=== PATIENT | female | born 1980 | race African-American/Black ===

== ENCOUNTER 2017-08-11 06:49 | Emergency (ER) | payer OTHER, MEDICAID, SELFPAY | END 2017-08-11 08:22 | disposition home or self-care (01) | PROVIDERS: Emergency Provider Emergency Medicine; Visit Provider Emergency Medicine | DX: L02.811 Cutaneous abscess of head [any part, except face] (principal) | CPT/HCPCS: 99282 ==

== ENCOUNTER 2017-08-30 22:41 | Emergency (ER) | payer OTHER, MEDICAID, SELFPAY ==
[2017-08-30 22:46] VITALS: BP 105/65; PULSE 86; RESP 18; TEMP 36.9; O2SAT 98; BMI 21.1
--- NOTE | 2017-08-30 23:41 | ED.EXTPRO ---
HPI - Extremity Problem General Chief complaint: Extremity Problem,Nontraumatic Stated complaint: RT HAND SWELLING PAIN UNABLE TO MOVE WELL Time Seen by Provider: 08/30/17 22:57 Source: patient Mode of arrival: ambulatory Limitations: no limitations History of Present Illness HPI Narrative: 37-year-old female here for evaluation of right wrist pain. Patient states that she ???woke up with the pain this evening. She states she has a caregiver. Does not remember any specific trauma but has been lifting things recently. States she had similar symptoms on her left hand in the past. Has not tried anything for it. Related Data Home Medications Medication Instructions Recorded Confirmed cetirizine 10 mg PO QDAY #0 05/21/17 loratadine [Claritin Liqui-Gel] 10 mg PO QDAY #0 05/21/17 Previous Rx's Medication Instructions Recorded Spacer: Inhaler Spacer Device ea INH SEE INSTRUCTIONS PRN #1 05/15/17 albuterol sulfate [Ventolin HFA] 2 puff INH Q4HP PRN #1 ea 05/15/17 amoxicillin 875 mg PO BID #10 tab 05/15/17 benzonatate 100 mg PO TIDP PRN #30 cap 05/15/17 prednisone 40 mg PO AMCC #8 tab 05/15/17 ondansetron [Zofran ODT] 4 mg SUBLINGUAL Q4HP PRN #15 odt 05/19/17 sertraline [Zoloft] 50 mg PO QDAY #30 tab 05/21/17 mupirocin 0 quang TOPICAL TID #22 gm 08/11/17 Allergies Allergy/AdvReac Type Severity Reaction Status Date / Time levofloxacin [LEVOFLOXACIN] Allergy Intermediate nausea, Unverified 07/30/17 12:38 vomiting. No Known Drug Allergies Allergy Unknown Unverified 07/30/17 12:38 [NO KNOWN DRUG ALLERGIES] Review of Systems Constitutional Denies chills, Denies fever(s), Denies lethargy and Denies weakness Musculoskeletal Comments: Right wrist pain. Swelling to right hand Integumentary/Breasts Denies pruritus, Denies erythema, Denies rash and Denies wounds Neurologic Denies weakness Comments: Tingling to her right hand fingers PFSH Family History Brother Age: 46 Hypertension Father Heart disease Hypertension Grandfather Prostate cancer Heart disease Hypertension High cholesterol Grandmother Hypertension Mother Age: 67 Colon cancer Parkinson disease Grandmother Cancer Hypertension High cholesterol Social History Smoking Status: Current every day smoker Exam Const General: cooperative and well developed Nutritional Appearance: well nourished Orientation: alert, awake, oriented x3 and not confused Skin General: no rashes or lesions noted, No jaundice and No petechiae Neuro Other: Sensation intact to light touch right upper extremity Extrem Other: Patient with tenderness to palpation over the distal radius and ulna in over the metacarpals. Right fingers unremarkable. Right elbow unremarkable. Does have pain with supination. MDM - Extremity (Nontraumatic) MDM Narrative Medical decision making narrative: Patient is neurovascularly intact. No trauma. X-rays do not show any fracture placed patient in a removable splint for comfort. She was given care instructions. She was given follow-up precautions. She expressed understanding and agreement with plan Imaging Data Right wrist x-ray: My impression: No fractures No dislocation No acute pathology Course Orders Ordered: ED Orders 08/30/17 23:48 XR wrist RT min 3V Stat Last Vital Signs Temp 98.4 F 08/30/17 22:46 Pulse 86 08/30/17 22:46 Resp 18 08/30/17 22:46 BP 105/65 08/30/17 22:46 Pulse Ox 98 08/30/17 22:46 Discharge Plan Departure Patient Disposition: Home, Self-Care Clinical Impression: Acute pain of right wrist Instructions: How To Perform RICE (Rest, Ice, Compress, Elevate) Activity Restrictions/Additional Instructions: You can use the splint for comfort. You can take it off to shower. You have no restrictions except which are limited by because of the discomfort. Call your primary doctor for a follow-up. Return to the emergency department for any new or worsening symptoms Prescriptions: No Action prednisone 20 MG tablet 40 mg PO AMCC Qty: 8 RF: 0 amoxicillin 875 MG tablet 875 mg PO BID Qty: 10 RF: 0 albuterol sulfate [Ventolin HFA] 90 MCG/PUFF HFA aerosol inhaler 2 puff INH Q4HP PRNQty: 1 RF: 0 Spacer: Inhaler Spacer Device INH SEE INSTRUCTIONS PRNQty: 1 RF: 99 benzonatate 100 MG capsule 100 mg PO TIDP PRNQty: 30 RF: 0 ondansetron [Zofran ODT] 4 MG tablet,disintegrating 4 mg Sublingual Q4HP PRNQty: 15 RF: 0 cetirizine 10 MG tablet 10 mg PO QDAY Qty: 0 RF: 0 loratadine [Claritin Liqui-Gel] 10 MG capsule 10 mg PO QDAY Qty: 0 RF: 0 sertraline [Zoloft] 50 MG tablet 50 mg PO QDAY Qty: 30 RF: 5 mupirocin 2 % ointment Topical TID Qty: 22 RF: 0
--- NOTE | 2017-08-30 23:48 | DI.RAD.S_ITS ---
PROCEDURE: XR WRIST RT MIN 3V INDICATIONS: Pain and limited range of motion TECHNIQUE: Oral 3 views of the wrist were acquired. COMPARISON: None. FINDINGS: Bones: No fractures or dislocations. No suspicious bony lesions. Soft tissues: No suspicious soft tissue calcifications. IMPRESSION: No acute radiographic findings. If pain persists, consider advanced imaging with CT or MRI. Dictated by: Nakia Leiva M.D. on 08/31/2017 at 8:12 Approved by: Nakia Leiva M.D. on 08/31/2017 at 8:12
[2017-08-31 01:31] VITALS: BP 94/54; PULSE 69; RESP 12; O2SAT 96
== END 2017-08-31 01:32 | disposition home or self-care (01) ==
PROVIDERS: Emergency Provider Emergency Medicine
DX: M79.89 Other specified soft tissue disorders (principal); M25.531 Pain in right wrist
CPT/HCPCS: 29260; 73110; 99282; 99283

== ENCOUNTER 2017-09-25 17:32 | Emergency (ER) | payer OTHER, MEDICAID, SELFPAY ==
[2017-09-25 17:47] VITALS: BP 123/74; PULSE 64; RESP 18; TEMP 36.9; O2SAT 100; BMI 21.1
--- NOTE | 2017-09-25 18:56 | ED.FEMALEGU ---
HPI - Female Genitourinary <SCOOTER Hassan - Last Filed: 09/25/17 22:32> General Chief complaint: Urogenital-Female Stated complaint: states lower abd/back pain Time Seen by Provider: 09/25/17 18:08 Source: patient Mode of arrival: ambulatory Limitations: no limitations History of Present Illness HPI Narrative: Patient presents with severe vaginal bleeding. She states it is day 1 of her menstrual cycle. She went through 3 pads in 1 hr today. She states she is having severe clots that are ?stringy.? She has a history of fibroids. She denies any urinary symptoms. She states that this is ?a really bad menstrual cycle? and complains of bilateral lower belly and back pain. Denies fevers or nausea, vomiting or diarrhea. States she was sent here from her PCPs office due to her level of pain. States she has a history of fibroids. Related Data Home Medications Medication Instructions Recorded Confirmed cetirizine 10 mg PO QDAY #0 05/21/17 09/01/17 loratadine [Claritin Liqui-Gel] 10 mg PO QDAY #0 05/21/17 09/01/17 Previous Rx's Medication Instructions Recorded Spacer: Inhaler Spacer Device ea INH SEE INSTRUCTIONS PRN #1 05/15/17 albuterol sulfate [Ventolin HFA] 2 puff INH Q4HP PRN #1 ea 05/15/17 indomethacin 50 mg capsule 50 mg PO ONCE #30 cap 09/01/17 Allergies Allergy/AdvReac Type Severity Reaction Status Date / Time levofloxacin [LEVOFLOXACIN] Allergy Intermediate nausea, Verified 09/01/17 09:30 vomiting. Review of Systems <SCOOTER Hassan - Last Filed: 09/25/17 22:32> Review of Systems GENERAL: See HPI HEENT: Denies sinus pain, ear pain, sore throat, difficulty swallowing, dizziness. RESPIRATORY: Denies dyspnea, cough, wheezing, hemoptysis, sputum. CARDIOVASCULAR: Denies chest pain, palpitations, orthopnea, edema, GASTROINTESTINAL: See HPI : See HPI MUSCULOSKELETAL: denies weakness, joint pain, or bony pain SKIN: Denies rash, skin lesions, or other NEUROLOGIC: Denies weakness, headache, numbness, change in speech, confusion, seizures, incoordination. PSYCHIATRIC: No concerning psychosocial issues. 12 point review of systems is negative except for those stated above Exam <SCOOTER Hassan - Last Filed: 09/25/17 22:32> Narrative Exam Narrative: GENERAL: This is a well-nourished, well-developed patient, in mild distress. HEAD: Atraumatic. Normocephalic. No temporal or scalp tenderness. EYES: Pupils equal round and reactive. Extraocular motions intact. No scleral icterus. No injection or drainage. ENT: Nose without bleeding, purulent drainage or septal hematoma. Throat without erythema, tonsillar hypertrophy or exudate. Uvula midline. Airway patent. NECK: Trachea midline. No JVD or lymphadenopathy. Supple, nontender, no meningeal signs. CARDIOVASCULAR: Regular rate and rhythm without murmurs, gallops, or rubs. RESPIRATORY: Clear to auscultation. Breath sounds equal bilaterally. No wheezes, rales, or rhonchi. GASTROINTESTINAL: Abdomen soft, nondistended. No hepato-splenomegaly, or palpable masses. Generalized tenderness to lower quadrants. No guarding, nonrigid. EXTREMITIES: No clubbing, cyanosis, or edema. No joint tenderness, effusion, or edema noted. BACK: Nontender without deformity or crepitance. No flank tenderness. NEURO: AOx3. SKIN: No rash or erythema. Initial Vital Signs Initial Vital Signs: Vital Signs Temperature 98.4 F 09/25/17 17:47 Pulse Rate 64 09/25/17 17:47 Respiratory Rate 18 09/25/17 17:47 Blood Pressure 123/74 H 09/25/17 17:47 Pulse Oximetry 100 09/25/17 17:47 <Elba Kaiser DO - Last Filed: 09/26/17 01:24> Initial Vital Signs Initial Vital Signs: Vital Signs Temperature 98.4 F 09/25/17 17:47 Pulse Rate 64 09/25/17 17:47 Respiratory Rate 18 09/25/17 17:47 Blood Pressure 123/74 H 09/25/17 17:47 Pulse Oximetry 100 09/25/17 17:47 Course <SCOOTER Hassan - Last Filed: 09/25/17 22:32> Hospital Course: Patient presents with chief complaint of lower belly cramping and vaginal bleeding related to her menses. States it has been 3- 4 pads over 1 hr. She was given an IV with a L of fluid as well as Toradol for pain. She expressed great relief with the Toradol. Labs were drawn including a CBC CMP. She received an ultrasound of her pelvis. Upon discharge or bleeding had slowed so she was using the same bad for the past 4 hr. I discussed at length with her follow up with her PCP and come back to the emergency department if any worsening pain, bleeding, dizziness or lightheadedness. Patient no questions or concerns. Orders Ordered: ED Orders 09/25/17 18:49 Urine Microscopic Stat 09/25/17 19:09 US pelvic complete Stat 09/25/17 19:10 Complete Blood Count AUTO DIFF Stat Comprehensive Metabolic Panel Stat Discontinued Medications Sodium Chloride (Normal Saline 0.9%) 1,000 mls @ 1,000 mls/hr IV BOLUS ONE Stop: 09/25/17 19:56 Last Infusion: 09/25/17 19:58 Dose: 0 mls/hr Admin: 09/25/17 19:14 Dose: 1,000 mls/hr Ketorolac Tromethamine (Toradol) 30 mg IV NOW ONE Stop: 09/25/17 18:58 Last Admin: 09/25/17 19:15 Dose: Ketorolac Tromethamine (Toradol) 30 mg IV NOW ONE Stop: 09/25/17 19:16 Last Admin: 09/25/17 19:17 Dose: 30 mg Vital Signs - 8 hr 09/25/17 17:47 09/25/17 19:58 09/25/17 20:43 Temperature 98.4 F Pulse Rate 64 56 L 56 L Respiratory Rate 18 14 14 Blood Pressure 123/74 H 129/76 H Blood Pressure [Right Arm] 104/70 Pulse Oximetry 100 100 100 <Elba Kaiser, - Last Filed: 09/26/17 01:24> Orders Ordered: ED Orders 09/25/17 18:49 Urine Microscopic Stat 09/25/17 19:09 US pelvic complete Stat 09/25/17 19:10 Complete Blood Count AUTO DIFF Stat Comprehensive Metabolic Panel Stat Discontinued Medications Sodium Chloride (Normal Saline 0.9%) 1,000 mls @ 1,000 mls/hr IV BOLUS ONE Stop: 09/25/17 19:56 Last Infusion: 09/25/17 19:58 Dose: 0 mls/hr Admin: 09/25/17 19:14 Dose: 1,000 mls/hr Ketorolac Tromethamine (Toradol) 30 mg IV NOW ONE Stop: 09/25/17 18:58 Last Admin: 09/25/17 19:15 Dose: Ketorolac Tromethamine (Toradol) 30 mg IV NOW ONE Stop: 09/25/17 19:16 Last Admin: 09/25/17 19:17 Dose: 30 mg Vital Signs - 8 hr 09/25/17 17:47 09/25/17 19:58 09/25/17 20:43 Temperature 98.4 F Pulse Rate 64 56 L 56 L Respiratory Rate 18 14 14 Blood Pressure 123/74 H 129/76 H Blood Pressure [Right Arm] 104/70 Pulse Oximetry 100 100 100 MDM - Female Genitourinary <ANANT HassanP- - Last Filed: 09/25/17 22:32> Lab Data Attestation: I reviewed the patient's lab results. Result diagrams: 09/25/17 19:10 09/25/17 19:10 Lab Results 09/25/17 09/25/17 09/25/17 Range/Units 18:49 19:10 19:10 WBC 7.8 (4.5-11.0) X10^3/uL RBC 3.84 L (4.0-5.2) X10^6/uL Hgb 11.3 L (12.0-16.0) g/dL Hct 34.2 L (36-46) % MCV 88.9 (80-100) fL MCH 29.5 (26-34) PG MCHC 33.2 (30-36) % RDW 14.1 (11.6-14.8) % Plt Count 273 (150-400) X10^3/uL Neut % (Auto) 59.1 (50-75) % Lymph % (Auto) 30.1 (25-40) % Wagoner % (Auto) 5.8 (3-14) % Eos % (Auto) 4.3 H (2-4) % Baso % (Auto) 0.7 (0-2) % Neut # (Auto) 4600 (3094-1648) /uL Sodium 140 (137-145) mmol/L Potassium 3.7 (3.4-5.1) mmol/L Chloride 105 (98-107) mmol/L Carbon Dioxide 24 (22-32) mmol/L BUN 11 (7-17) mg/dL Creatinine 0.70 (0.52-1.04) mg/dL Estimated GFR > 60.0 (>60) mL/min BUN/Creatinine Ratio 15.7 (6-22) Glucose 104 H (70-100) mg/dL Calcium 9.0 (8.4-10.2) mg/dL Total Bilirubin 1.0 (0.2-1.3) mg/dL AST 20 (14-36) IU/L ALT 25 (9-52) IU/L Alkaline Phosphatase 44 (38-126) U/L Total Protein 7.1 (6.3-8.2) g/dL Albumin 4.1 (3.5-5.0) g/dL Globulin 3.0 (1.7-4.1) g/dL Albumin/Globulin Ratio 1.4 (1.0-2.8) Urine RBC 5-10/hpf H (0-5/HPF) Urine WBC 0-1/hpf (0-5/HPF) Ur Squamous Epith Cells 0-1 /hpf Urine Bacteria None seen (None) Ur Culture Indicated? Cult not indicated Micro UA Comment Not Reportable Imaging Data US - abdomen: Radiologist's impression: [address] [address] Ultrasound Report Signed Patient: Nemesio Muller MR#: [id number] : 1980 Acct:[id number] Age/Sex: 37 / F Date of Service: 09/25/17 Loc: ED Accession Number: [id number] Procedure: US pelvic complete Ordering Provider: Kellee Linton NURSING PROGRAM COORDINATOR- PROCEDURE: US PELVIC COMPLETE INDICATIONS: HEAVY BLEEDING, CRAMPING TECHNIQUE: Real-time scanning was performed of the pelvic organs, with image documentation. Additional endovaginal scanning was necessary due to incomplete visualization of the adnexal and endometrial structures by transabdominal scanning. COMPARISON: [facility], , PELVIC COMPLETE, 06/03/2016, 20:32. FINDINGS: Transabdominal scanning: Limited scanning through the kidneys shows no hydronephrosis. No pathologic free abdominal or pelvic fluid. Endovaginal scanning: Uterus: Uterus is normal in size at 10.7 x 5.8 x 6.9 cm. The endometrium measures 8 mm in combined thickness. Ovaries: Right ovary measures 3.3 x 2.6 x 2.9 CM. The left ovary measures 3.8 x 1.9 x 2.6 CM. Both demonstrate normal rectal echogenicity. No free fluid identified. Limited images of the kidneys are within normal limits. IMPRESSION: No sonographic evidence of acute pelvic pathology. Dictated by: Quan Swan M.D. on 09/25/2017 at 20:08 [facility] Narrative Medical decision making narrative: Patient presented with lower abdominal pain she states is related to her menses. A CBC CMP came back within normal limits for the patient. A pelvic ultrasound was completed to evaluate for possible fibroids or thickened uterine lining. Her ultrasound came back within normal limits. Given her level of pain relief with fluids and Toradol, patient stated she was comfortable going home. Discussed at length with patient return precautions including worsening belly pain, fever, nausea or vomiting or diarrhea. She states she will follow up the primary care provider come back to the emergency department if needed. <Elba Kaiser, DO - Last Filed: 09/26/17 01:24> Lab Data Lab Results 09/25/17 09/25/17 09/25/17 Range/Units 18:49 19:10 19:10 WBC 7.8 (4.5-11.0) X10^3/uL RBC 3.84 L (4.0-5.2) X10^6/uL Hgb 11.3 L (12.0-16.0) g/dL Hct 34.2 L (36-46) % MCV 88.9 (80-100) fL MCH 29.5 (26-34) PG MCHC 33.2 (30-36) % RDW 14.1 (11.6-14.8) % Plt Count 273 (150-400) X10^3/uL Neut % (Auto) 59.1 (50-75) % Lymph % (Auto) 30.1 (25-40) % Wagoner % (Auto) 5.8 (3-14) % Eos % (Auto) 4.3 H (2-4) % Baso % (Auto) 0.7 (0-2) % Neut # (Auto) 4600 (6302-3299) /uL Sodium 140 (137-145) mmol/L Potassium 3.7 (3.4-5.1) mmol/L Chloride 105 (98-107) mmol/L Carbon Dioxide 24 (22-32) mmol/L BUN 11 (7-17) mg/dL Creatinine 0.70 (0.52-1.04) mg/dL Estimated GFR > 60.0 (>60) mL/min BUN/Creatinine Ratio 15.7 (6-22) Glucose 104 H (70-100) mg/dL Calcium 9.0 (8.4-10.2) mg/dL Total Bilirubin 1.0 (0.2-1.3) mg/dL AST 20 (14-36) IU/L ALT 25 (9-52) IU/L Alkaline Phosphatase 44 (38-126) U/L Total Protein 7.1 (6.3-8.2) g/dL Albumin 4.1 (3.5-5.0) g/dL Globulin 3.0 (1.7-4.1) g/dL Albumin/Globulin Ratio 1.4 (1.0-2.8) Urine RBC 5-10/hpf H (0-5/HPF) Urine WBC 0-1/hpf (0-5/HPF) Ur Squamous Epith Cells 0-1 /hpf Urine Bacteria None seen (None) Ur Culture Indicated? Cult not indicated Micro UA Comment Not Reportable Discharge Plan Departure Patient Disposition: Home, Self-Care Clinical Impression: Abdominal pain Discharge Date/Time: 09/25/17 20:48 Interventions: ED Discharge Assessment Last Done: 09/25/17 20:43 Instructions: DI for Abdominal Pain-Adult, DI for Abnormal Uterine Bleeding Activity Restrictions/Additional Instructions: You came in today with lower abdominal pain likely attributed to your menses. We gave you some fluid and pain medication. Please do not take any ibuprofen for about 6-8 hours. All of your lab work came back normal and your ultrasound came back normal as well. Please follow-up with your primary care provider. Come back to the emergency department if you have any severe bleeding, lightheadedness, dizziness chest pain or shortness of breath. Prescriptions: No Action indomethacin 50 mg capsule 50 mg PO ONCE Qty: 30 RF: 0 albuterol sulfate [Ventolin HFA] 90 MCG/PUFF HFA aerosol inhaler 2 puff INH Q4HP PRNQty: 1 RF: 0 Spacer: Inhaler Spacer Device INH SEE INSTRUCTIONS PRNQty: 1 RF: 99 cetirizine 10 MG tablet 10 mg PO QDAY Qty: 0 RF: 0 loratadine [Claritin Liqui-Gel] 10 MG capsule 10 mg PO QDAY Qty: 0 RF: 0 Referrals: Selene Al DO [Primary Care Provider] - <Elba Kaiser DO - Last Filed: 09/26/17 01:24> Cosign ED Attending Cosignature Attestation: I was immediately available in the department for consultation. Documentation has been reviewed. I agree with assessment and plan.
--- NOTE | 2017-09-25 19:09 | DI.US.S_ITS ---
PROCEDURE: US PELVIC COMPLETE INDICATIONS: HEAVY BLEEDING, CRAMPING TECHNIQUE: Real-time scanning was performed of the pelvic organs, with image documentation. Additional endovaginal scanning was necessary due to incomplete visualization of the adnexal and endometrial structures by transabdominal scanning. COMPARISON: [facility], , PELVIC COMPLETE, 06/03/2016, 20:32. FINDINGS: Transabdominal scanning: Limited scanning through the kidneys shows no hydronephrosis. No pathologic free abdominal or pelvic fluid. Endovaginal scanning: Uterus: Uterus is normal in size at 10.7 x 5.8 x 6.9 cm. The endometrium measures 8 mm in combined thickness. Ovaries: Right ovary measures 3.3 x 2.6 x 2.9 CM. The left ovary measures 3.8 x 1.9 x 2.6 CM. Both demonstrate normal rectal echogenicity. No free fluid identified. Limited images of the kidneys are within normal limits. IMPRESSION: No sonographic evidence of acute pelvic pathology. Dictated by: Quan Swan M.D. on 09/25/2017 at 20:08 Approved by: Quan Swan M.D. on 09/25/2017 at 20:10
[2017-09-25 19:12] LABS: Bacteria Urine None Seen
[2017-09-25 19:13] LABS: Culture Indicated Urine Cult Not Indicated; RBC Urine 5-10/HPF (0-5/HPF); Squamous Epithelial Cell Urine 0-1 /HPF; WBC Urine 0-1/HPF (0-5/HPF)
[2017-09-25] MEDS: SODIUM CHLORIDE 0.9% 1,000 ML 1000 ML IV (19:14)
[2017-09-25] MEDS: KETOROLAC 60 MG/2 ML VIAL 30 MG IV (19:17)
[2017-09-25 19:20] LABS: Add Manual Diff / Slide Review NO; Basophils Percent Auto 0.7 % (0-2); Eosinophils Percent Auto 4.3 % (2-4); Hematocrit 34.2 % (36-46); Hemoglobin 11.3 g/dL (12.0-16.0); Lymphocytes Percent Auto 30.1 % (25-40); Mean Corpuscular HGB Conc 33.2 % (30-36); Mean Corpuscular Hemoglobin 29.5 PG (26-34); Mean Corpuscular Volume 88.9 fL (80-100); Monocytes Percent Auto 5.8 % (3-14); Neutrophils Absolute Auto 4600 /uL (3000-5900); Neutrophils Percent Auto 59.1 % (50-75); Platelet Count 273 X10^3/uL (150-400); Red Blood Cell Count 3.84 X10^6/uL (4.0-5.2); Red Cell Distribution Width 14.1 % (11.6-14.8); White Blood Cell Count 7.8 X10^3/uL (4.5-11.0)
[2017-09-25 19:35] LABS: Alanine Aminotransferase 25 IU/L (9-52); Albumin 4.1 g/dL (3.5-5.0); Albumin Globulin Ratio 1.4 (1.0-2.8); Alkaline Phosphatase 44 U/L (38-126); Aspartate Aminotransferase 20 IU/L (14-36); BUN Creatinine Ratio 15.7 (6-22); Blood Urea Nitrogen 11 mg/dL (7-17); Carbon Dioxide 24 mmol/L (22-32); Chloride 105 mmol/L (98-107); Estimated Glomerular Filt Rate > 60.0 mL/min (>60); Glucose 104 mg/dL (70-100); HEMOLYSIS < 15 (0-50); Potassium 3.7 mmol/L (3.4-5.1); Sodium 140 mmol/L (137-145); Total Protein 7.1 g/dL (6.3-8.2)
[2017-09-25 19:58] VITALS: BP 104/70; PULSE 56; RESP 14; O2SAT 100
[2017-09-25 20:43] VITALS: BP 129/76; PULSE 56; RESP 14; O2SAT 100
== END 2017-09-25 20:48 | disposition home or self-care (01) ==
PROVIDERS: Emergency Provider Nurse Practitioner Family; PCP Family Medicine
DX: R10.9 Unspecified abdominal pain (principal)
CPT/HCPCS: 36591; 76830; 76856; 80053; 81003; 81015; 81025; 85025; 96361; 96374; 99283; 99284; J1885

== ENCOUNTER 2017-09-27 17:19 | Emergency (ER) | payer OTHER, MEDICAID, SELFPAY ==
[2017-09-27 17:25] VITALS: BP 111/70; PULSE 75; RESP 20; TEMP 36.7; O2SAT 100; BMI 21.1
--- NOTE | 2017-09-27 18:19 | ED_ITS ---
HPI - Back Pain/Injury <YUNG Viera - Last Filed: 09/27/17 22:51> General Chief Complaint: Back Pain/Injury Stated Complaint: BACK PAIN NOT GETTING ANY BETTER Time Seen by Provider: 09/27/17 18:23 History of Present Illness HPI Narrative: 37-year-old female here for complaint having pain into bilateral lower back. She was seen a couple days ago for similar discomfort which was attributed to her menstrual cycle. She denies any trauma to the lower back. She reports increased pain to lower back with motion. 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 She denies any loss of bladder or bowel control. She is able to ambulate in the emergency room. She reports that heat does help her discomfort periodically. Related Data Home Medications Medication Instructions Recorded Confirmed cetirizine 10 mg PO QDAY #0 05/21/17 09/01/17 loratadine [Claritin Liqui-Gel] 10 mg PO QDAY #0 05/21/17 09/01/17 Previous Rx's Medication Instructions Recorded Spacer: Inhaler Spacer Device ea INH SEE INSTRUCTIONS PRN #1 05/15/17 albuterol sulfate [Ventolin HFA] 2 puff INH Q4HP PRN #1 ea 05/15/17 indomethacin 50 mg capsule 50 mg PO ONCE #30 cap 09/01/17 cyclobenzaprine 10 mg PO TID PRN #12 tab 09/27/17 naproxen 500 mg PO QD-BID PRN #14 tab 09/27/17 Allergies Allergy/AdvReac Type Severity Reaction Status Date / Time levofloxacin [LEVOFLOXACIN] Allergy Intermediate nausea, Verified 09/01/17 09:30 vomiting. Review of Systems <YUNG Viera - Last Filed: 09/27/17 22:51> Constitutional Denies chills, Denies fever(s), Denies lethargy and Denies weakness Eyes Denies change in vision, Denies eye discharge, Denies irritation and Denies loss of vision ENT Ears, Nose, Mouth, and Throat: Denies change in voice, Denies neck pain and Denies sore throat Cardiovascular Denies chest pain, Denies irregular heart rhythm, Denies lightheadedness, Denies palpitations, Denies dyspnea, Denies dyspnea on exertion and Denies orthopnea Respiratory Denies cough, Denies dyspnea, Denies dyspnea on exertion and Denies wheezing Gastrointestinal Gastrointestinal: Denies abdominal pain, Denies change in bowel habits, Denies diarrhea, Denies nausea and Denies vomiting Genitourinary Denies hematuria, Denies flank pain, Denies urinary incontinence and Denies urinary urgency Musculoskeletal Reports back pain and Denies neck pain Integumentary/Breasts Denies pruritus, Denies erythema, Denies rash and Denies wounds Neurologic Denies confusion, Denies loss of vision and Denies weakness Psychiatric Denies anxiety, Denies confusion, Denies depression, Denies homicidal ideation and Denies suicidal ideation Endocrine Denies palpitations Hematologic/Lymphatic Denies easy bruising Allergic/Immunologic Denies wheezing Exam <YUNG Viera - Last Filed: 09/27/17 22:51> Initial Vital Signs Initial Vital Signs: Vital Signs Temperature 98.0 F 09/27/17 17:25 Pulse Rate 75 09/27/17 17:25 Respiratory Rate 20 09/27/17 17:25 Blood Pressure 111/70 09/27/17 17:25 Pulse Oximetry 100 09/27/17 17:25 Const General: cooperative and well developed Nutritional Appearance: well nourished Orientation: alert, awake, oriented x3 and not confused [facility] Mouth: oral mucosae normal and moist mucous membranes Eyes General: appearance normal, both eyes and all related structures Eyelids: eyelids normal Conjunctivae: conjunctivae normal Sclera: sclerae normal Pupils: PERRL EOM: EOM intact bilaterally Resp Effort & Inspection: normal respiratory effort, able to speak in complete sentences, no respiratory distress and no use of accessory muscles Auscultation: clear to auscultation bilaterally, no rales, no rhonchi and no wheezes Cardio Rate: regular rate Rhythm: regular rhythm Heart Sounds: no click, no gallops, no murmurs and no rubs General: No CVA tenderness Back/Spine/Pelvis Other: Tenderness on palpation to the paraspinous of the lumbar spine. No midline tenderness. No deformities. Distal sensation is intact. Distal range of motion is intact. Distal pulses are intact <German Joy DO - Last Filed: 09/28/17 00:15> Initial Vital Signs Initial Vital Signs: Vital Signs Temperature 98.0 F 09/27/17 17:25 Pulse Rate 75 09/27/17 17:25 Respiratory Rate 20 09/27/17 17:25 Blood Pressure 111/70 09/27/17 17:25 Pulse Oximetry 100 09/27/17 17:25 Course <YUNG Viera - Last Filed: 09/27/17 22:51> Orders Ordered: Discontinued Medications Cyclobenzaprine HCl (Flexeril 10 Mg Prepack) 1 bottle [facility] Last Admin: 09/27/17 19:23 Dose: 1 bottle Ketorolac Tromethamine (Toradol) 60 mg IM NOW ONE Stop: 09/27/17 18:45 Last Admin: 09/27/17 19:23 Dose: 60 mg Vital Signs - 8 hr 09/27/17 17:25 09/27/17 19:02 Temperature 98.0 F Pulse Rate 75 119 H Respiratory Rate 20 24 Blood Pressure 111/70 Blood Pressure [Left Arm] 116/73 Pulse Oximetry 100 100 <German Joy DO - Last Filed: 09/28/17 00:15> Orders Ordered: Discontinued Medications Cyclobenzaprine HCl (Flexeril 10 Mg Prepack) 1 bottle [facility] Last Admin: 09/27/17 19:23 Dose: 1 bottle Ketorolac Tromethamine (Toradol) 60 mg IM NOW ONE Stop: 09/27/17 18:45 Last Admin: 09/27/17 19:23 Dose: 60 mg Vital Signs - 8 hr 09/27/17 17:25 09/27/17 19:02 Temperature 98.0 F Pulse Rate 75 119 H Respiratory Rate 20 24 Blood Pressure 111/70 Blood Pressure [Left Arm] 116/73 Pulse Oximetry 100 100 MDM - Back Pain/Injury <YUNG Viera - Last Filed: 09/27/17 22:51> MDM Narrative Medical decision making narrative: Signs and presents as strain into the lower back region. She is prescribed cyclobenzaprine and naproxen. Gentle range of motion into the painful area to help keep muscles loose. Rest area. Work note given for 2 days to help rest the back. Follow up with primary care provider. For any worsening symptoms return to the emergency room. Discharge Plan Departure Patient Disposition: Home, Self-Care Clinical Impression: Back pain Discharge Date/Time: 09/27/17 19:42 Interventions: ED Discharge Assessment Last Done: 09/27/17 19:41 Instructions: DI for Low Back Pain Activity Restrictions/Additional Instructions: Signs and presents as strain into the lower back region. She is prescribed cyclobenzaprine and naproxen. Gentle range of motion into the painful area to help keep muscles loose. Rest area. Work note given for 2 days to help rest the back. Follow up with primary care provider. For any worsening symptoms return to the emergency room. Prescriptions: New cyclobenzaprine 10 mg tablet 10 mg PO TID PRN (Reason: muscle spasm) Qty: 12 RF: 0 naproxen 500 mg tablet 500 mg PO QD-BID PRN (Reason: pain) Qty: 14 RF: 0 No Action indomethacin 50 mg capsule 50 mg PO ONCE Qty: 30 RF: 0 albuterol sulfate [Ventolin HFA] 90 MCG/PUFF HFA aerosol inhaler 2 puff INH Q4HP PRNQty: 1 RF: 0 Spacer: Inhaler Spacer Device INH SEE INSTRUCTIONS PRNQty: 1 RF: 99 cetirizine 10 MG tablet 10 mg PO QDAY Qty: 0 RF: 0 loratadine [Claritin Liqui-Gel] 10 MG capsule 10 mg PO QDAY Qty: 0 RF: 0 Referrals: Selene Al DO [Primary Care Provider] - Stand Alone Forms: Work/School Restrictions <German Joy DO - Last Filed: 09/28/17 00:15> Cosdarian ED Attending Megan Attestation: I was available for consultation during this patient's emergency department encounter
[2017-09-27 19:02] VITALS: BP 116/73; PULSE 119; RESP 24; O2SAT 100
[2017-09-27] MEDS: KETOROLAC 60 MG/2 ML VIAL IM (19:23)
[2017-09-27] MEDS: CYCLOBENZAPRINE 10 MG PREPACK 1 BOTTLE MISC (19:23)
== END 2017-09-27 19:42 | disposition home or self-care (01) ==
PROVIDERS: Emergency Provider Nurse Practitioner Family; PCP Family Medicine
DX: M54.9 Dorsalgia, unspecified (principal)
CPT/HCPCS: 81003; 81025; 96372; 99282; 99283; J1885

== ENCOUNTER → 2017-11-27 10:51 | Outpatient (CLI) | payer OTHER, MEDICAID, SELFPAY ==
[2017-11-27 11:46] LABS: Add Manual Diff / Slide Review NO; Basophils Percent Auto 0.4 % (0-2); Eosinophils Percent Auto 5.3 % (2-4); Hematocrit 36.6 % (36-46); Hemoglobin 12.3 g/dL (12.0-16.0); Lymphocytes Percent Auto 32.6 % (25-40); Mean Corpuscular HGB Conc 33.6 % (30-36); Mean Corpuscular Hemoglobin 29.9 PG (26-34); Mean Corpuscular Volume 88.9 fL (80-100); Monocytes Percent Auto 5.4 % (3-14); Neutrophils Absolute Auto 5000 /uL (3000-5900); Neutrophils Percent Auto 56.3 % (50-75); Platelet Count 358 X10^3/uL (150-400); Red Blood Cell Count 4.12 X10^6/uL (4.0-5.2); Red Cell Distribution Width 13.7 % (11.6-14.8); White Blood Cell Count 8.9 X10^3/uL (4.5-11.0)
[2017-11-27 12:32] LABS: Free T3, Triiodothyronine Free 3.22 pg/mL (2.77-5.27)
[2017-11-27 12:45] LABS: Thyroid Stimulating Hormone 2.41 uIU/mL (0.47-4.68)
== END ==
PROVIDERS: PCP Family Medicine; Visit Provider Specialist
DX: R79.89 Other specified abnormal findings of blood chemistry (principal); Z01.818 Encounter for other preprocedural examination
CPT/HCPCS: 36415; 84439; 84443; 84481; 85025

== ENCOUNTER 2017-12-01 11:53 | Day surgery (SDC) | payer OTHER, MEDICAID, SELFPAY ==
[2017-11-18 16:19] VITALS: BMI 20.7
[2017-12-01] VITALS (12 sets, daily range): BP systolic 105–136; BP diastolic 49–85; PULSE 70–88; RESP 10–19; TEMP 36.3–36.6; O2SAT 97–100; BMI 20.5
--- NOTE | 2017-12-01 | PATH_ITS ---
[facility] Accession Number: [id number] . 01 Material submitted: . UTERUS . 02 Diagnosis: Uterus, Bilateral Fallopian Tubes (Supracervical Hysterectomy and Bilateral Salpingectomy) (Weight 142 grams, Morcellated Specimen): Proliferative endometrium; negative for glandular hyperplasia, cytologic atypia, and malignancy. Myometrium with diffuse involvement by adenomyosis. Uterine serosa with no diagnostic abnormality. Fallopian tubes x2 with scattered benign paratubal cysts (0.1-1.2 cm in greatest dimension). MRV/12/03/2017 . 02 Electronically signed: . Lucía Galdamez MD, Pathologist NPI- [id number] . 01 Gross description: . Received in formalin, labeled uterus, is a morcellated uterus (142 grams, 14.5 x 13.8 x 4.3 cm in aggregate) and two fimbriated fallopian tubes (tube #1: length-4.5 cm, diameter-0.5 cm; tube #2: length-5.3 cm, diameter-0.5 cm). The cervix and ovaries are absent. The specimen cannot be oriented, and the endometrium and myometrium cannot be grossly identified. The parenchyma is ace-white and unremarkable. The serosa is pale ace smooth and shiny. The fallopian tubes have foster-pink smooth and shiny serosa with multiple paratubal cysts (0.1 cm-1.2 cm) containing clear colorless fluid. The lumens are ace and unremarkable. Section code: (A1-A4) uterine parenchyma, sales account representative; (A5) fallopian tube #1, sales account representative serial sections; (A6) fimbria #1, bivalved, entirely submitted; (A7) fallopian tube #2, sales account representative serial sections; (A8) fimbria #2, bivalved, entirely submitted. ([id number]) /[facility] . 02 Pathologist provided ICD-10: N80.0 . 02 CPT . 050734 Performed at: 01 [facility] [address] [address], [place], [place] [id number] MD Billy Quiroz MD Phone: [phone] Performed at: 02 Located within [facility] [address] [place], [place] [id number] MD Klaus Ponce MD Phone: [phone]
[2017-12-01] MEDS: LACTATED RINGERS 1,000 ML 100 ML IV ×2 (13:05→18:04)
--- NOTE | 2017-12-01 13:19 | PM.PREOP ---
Pre-operative Note Interval Note Pre-op Check: Yes History & Physical Reviewed by Physician and Yes Exam Performed Changes: No H&P completed within 30 days and has changed as indicated here:: see 11/27/17 outpt note
[2017-12-01] MEDS: CEFAZOLIN 2 GM/100 ML FROZ.PIGGY IV (13:47)
--- NOTE | 2017-12-01 14:18 | SUR.OPER ---
Lithotomy on padded OR bed. Time Pad Positioner under torso. Head on pillow, arms padded and tucked at sides. Legs secured in padded yellow fins stirrups.
[2017-12-01] MEDS: BUPIVACAINE 0.5% W/ EPI (PF) VIAL 30 ML INJ (14:32)
--- NOTE | 2017-12-01 14:34 | SUR.OPER ---
GLASSES TO PACU IN LABELED BAG WITH PATIENT
--- NOTE | 2017-12-01 15:41 | PM.GYNOP.1 ---
Operative Date/Time/Diagnoses Date of procedure: 12/01/17 Time of procedure: 15:42 Pre-op diagnosis: Menorrhagia, dysmenorrhea, dyspareunia Post-op diagnosis: same Procedure: Procedures Operation Date: 12/01/17 13:30 Actual Procedures Side Surgeon p Laparoscopic Supracervical Hysterectomy Not Applicable Adamaris Aquino MD Surgeon: Adamaris Aquino Suture Gauger: Diana Parham Anesthesia Type: General Operative Notes Closure Type: primary Specimen(s): left tube, right tube and uterus (Supracervical) Applied: catheter Estimated blood loss (mL): 50 Procedure in detail: Patient is brought to the operating room where she underwent general anesthesia and placed in low [facility]. She was prepped and draped in the usual sterile fashion. A check list was reviewed with the staff in the room prior to beginning of the case. Patient had pulsatile stockings in place and functional. 2 g of Ancef were in prior to beginning of the case.. A Garcia catheter was placed. A single-tooth tenaculum was placed on the anterior lip of the cervix and the cervix dilated to a #6 Hegar dilator. The uterine manipulator was placed through the cervix into the uterus with the balloon inflated with 3 mL of air. The area of the umbilical incision and the 5 mm right and left lower quadrant incisions were injected with Marcaine. An incision was made with scalpel. The verries needle was placed into the abdomen and confirmed in the appropriate place with withdrawal on a syringe and then free flow of fluid down through the needle. The abdomen was insufflated with CO2. The needle was removed and a 5 mm trocar placed without difficulty. There did not appear to be any damage is placement of the trocar. The right and left lower quadrant incisions were made with the scalpel and the trochars placed without damage to internal structures. The PK forceps were used to cauterize sequential bites were taken along the mesosalpinx followed by the round ligaments on both sides. Sequential bites were taken down the broad ligaments. The uterine arteries were cauterized. An incision was made above the level bladder pushing the bladder away from the cervix. The KEO loop was placed around the uterus and the uterus was amputated above the level of the bladder. Bleeding was controlled with the PK forceps. The PK forceps were used to cauterize in the endocervical canal. A supracervical incision was made and an 11 mm port placed. A 15 mm Endo Catch bag was placed in the abdomen. The uterus, tubes and ovaries were placed in the bag and brought up through the suprapubic port site. The Murali O was placed. The uterus was hand morselized. The abdomen was reinsufflated and adequate hemostasis was noted. The trochars were removed and the CO2 allowed escape from the abdomen. The fascia layer of the suprapubic site was repaired with 0 Polysorb suture. Skin was closed with 4-0 Monocryl suture at the suprapubic site and the other 3 sites. The patient went to recovery room in good condition. Counts of instruments and sponges were correct. Complications: none Post-operative Condition: stable Disposition: Acute Care Plan for aftercare: Patient will be monitored for nausea and inability to ambulate post procedure.
[2017-12-01] MEDS: ALBUTEROL 2.5 MG/3 ML NEB (ADULT) INH (15:50)
[2017-12-01] MEDS: HYDROMORPHONE 2 MG INJ 0.5 MG IV (15:50)
--- NOTE | 2017-12-01 15:54 | SUR.PHASEI ---
Pt c/o chest pressure and heaviness, albuterol neb provided, Dr. Huntley notified. No new orders
--- NOTE | 2017-12-01 16:13 | SUR.PHASEI ---
Pt reported chest pressure better, pain improved. C/O pressure on her buttock, pt repositioned for comfort.
--- NOTE | 2017-12-01 16:26 | SUR.PHASEI ---
Report called to Emmie
--- NOTE | 2017-12-01 16:49 | SUR.PHASEI ---
Patient transferred to the floor. Report to Emmie, VS stable, belongings bag and glasses with patient. Abd bandaids cdi x4. Angie-pad cdi. IV saline locked. Garcia emptied clear, alix urine.
[2017-12-01] MEDS: OXYCODONE/ACETAMINOPHEN 5/325 TABLET 2 TAB PO ×2 (18:04→21:42)
[2017-12-01] MEDS: KETOROLAC 30 MG/ML VIAL IV (21:40)
[2017-12-01] MEDS: DOCUSATE 250 MG CAPSULE PO (21:40)
[2017-12-01] MEDS: GABAPENTIN 300 MG CAPSULE PO (23:47)
[2017-12-02 00:03] VITALS: BP 111/62; PULSE 74; RESP 15; TEMP 36.8; O2SAT 99
[2017-12-02] MEDS: OXYCODONE/ACETAMINOPHEN 5/325 TABLET 2 TAB PO ×4 (01:31→16:25)
[2017-12-02 04:17] VITALS: BP 111/73; PULSE 64; RESP 14; TEMP 36.7; O2SAT 99
[2017-12-02] MEDS: KETOROLAC 30 MG/ML VIAL IV (04:18)
[2017-12-02 06:00] LABS: Add Manual Diff / Slide Review NO; Basophils Percent Auto 0.1 % (0-2); Eosinophils Percent Auto 0.7 % (2-4); Hematocrit 29.2 % (36-46); Hemoglobin 10.1 g/dL (12.0-16.0); Mean Corpuscular HGB Conc 34.6 % (30-36); Mean Corpuscular Hemoglobin 30.4 PG (26-34); Mean Corpuscular Volume 87.9 fL (80-100); Monocytes Percent Auto 7.5 % (3-14); Neutrophils Absolute Auto 7300 /uL (3000-5900); Neutrophils Percent Auto 68.7 % (50-75); Platelet Count 269 X10^3/uL (150-400); Red Blood Cell Count 3.33 X10^6/uL (4.0-5.2); Red Cell Distribution Width 13.6 % (11.6-14.8); White Blood Cell Count 10.7 X10^3/uL (4.5-11.0)
[2017-12-02 07:30] VITALS: BP 110/63; PULSE 70; RESP 16; TEMP 36.6; O2SAT 100
--- NOTE | 2017-12-02 08:09 | P.DS_ITS ---
History of Present Illness Date Patient Seen: 12/02/17 Time Patient Seen: 08:06 Chief complaint: Menorrhagia, dysmenorrhea, dyspareunia Narrative: Discharge Providers Primary care physician: Selene Al DO Discharge provider: Adamaris Aquino MD Summary Discharge Diagnosis: Menorrhagia, dysmenorrhea, dyspareunia status post laparoscopic supracervical hysterectomy Hospital Course: Patient underwent a laparoscopic supracervical hysterectomy for dyspareunia, dysmenorrhea, menorrhagia. She did well postoperatively. She was passing gas and ambulatory. Tolerating p.o. pain medicines. Exam Vital Signs (past 8 hours): - 12/02/17 04:17 Temperature 98.1 F Pulse Rate 64 Respiratory Rate 14 Blood Pressure 111/73 Pulse Oximetry 99 Oxygen Delivery Method Room Air Oxygen Flow Rate 0 Narrative Exam Narrative: Abdomen is soft, minimally distended, appropriately tender. Dressings are dry. Minimal vaginal bleeding. Extremities without edema nontender. Objective Labs Result Diagrams: 12/02/17 05:29 Labs: Laboratory Results - last 24 hr 12/02/17 05:29 WBC 10.7 RBC 3.33 L Hgb 10.1 L Hct 29.2 L MCV 87.9 MCH 30.4 MCHC 34.6 RDW 13.6 Plt Count 269 Neut % (Auto) 68.7 Lymph % (Auto) 23.0 L Harney % (Auto) 7.5 Eos % (Auto) 0.7 L Baso % (Auto) 0.1 Neut # (Auto) 7300 H Discharge Plan Discharge Plan Patient Disposition: Home, Self-Care Discharge Med Rec/Prescriptions Prescriptions: No Action albuterol sulfate [Ventolin HFA] 90 MCG/PUFF HFA aerosol inhaler 2 puff INH Q4HP PRNQty: 1 RF: 0 cetirizine 10 MG tablet 10 mg PO QDAY Qty: 0 RF: 0 loratadine [Claritin Liqui-Gel] 10 MG capsule 10 mg PO QDAY Qty: 0 RF: 0 gabapentin 300 mg capsule 300 mg PO BEDTIME RF: 0 oxycodone-acetaminophen 10-325 mg tablet 2 tab PO Q4H PRN (Reason: pain) Qty: 40 RF: 0 sertraline [Zoloft] 50 mg Tablet 50 mg PO DAILY RF: 0 Spacer: Inhaler Spacer Device 1 ea INH SEE INSTRUCTIONS PRN (Reason: unknown) RF: 0 cyclobenzaprine 10 mg tablet 10 mg PO TID PRN (Reason: muscle spasm) Qty: 12 RF: 0 naproxen 500 mg tablet 500 mg PO QD-BID PRN (Reason: pain) Qty: 14 RF: 0 Follow up/Referrals: Adamaris Aquino MD [Physician] - (Patient has postop appointment scheduled on 12/15 at 10:30 a.m.) Discharge Orders: Discharge (Order); Ordered 12/02/17 Ordered By: Adamaris Aquino Provider Discharge Instructions Diet: Diet as Tolerated Skin/Wound/Dressing Care Report to your healthcare provider any signs of infection, such as:: chills, fever, night sweats and unusual drainage Dressing: may remove bandaids and get incisions wet, pat dry steristrips remove steristips in 1 week Visit Report/Discharge Packet Stand Alone Forms: Surgery Discharge Discharge Data Primary Care Provider: Selene Al Attending Provider: Adamaris Aquino Quality VTE Deep Vein Thrombosis/Pulmonary Embolism Present on Admission: No
[2017-12-02] MEDS: DOCUSATE 250 MG CAPSULE PO (08:37)
[2017-12-02] MEDS: CYCLOBENZAPRINE 10 MG TABLET PO (08:37)
[2017-12-02] MEDS: SERTRALINE 50 MG TABLET PO (08:37)
--- NOTE | 2017-12-02 10:16 | CM.DANOTE ---
Discharge Planning/Care Management CM Discharge Assessment Start: 12/02/17 10:13 Freq: Status: Active Protocol: Document 12/02/17 10:13 (Rec: 12/02/17 10:16 [id number]) Discharge Planning Assessment Assigned Metal Painter PHOTORADIO OPERATOR Advance Directives? No History Provided By Patient Prior Living Arrangements House Household Members significant other children Type of transporation used prior to Drives own vehicle admit Independent with ADL's Yes Is patient alert and oriented? Yes Caregiver for Another Yes: Children Community Services used prior to Social Work admission: Comment [facility] Discharge Plan Home Community Services Social Work Transportation Arrangement to picker operator after 1530. Referrals Initiated None needed Whiteboard Updated in Patient Room with Yes name and ext. # of Metal Painter Review Status In Process Met with patient: Notified patient of CM team role and patient understood. Patient's daughter and niece were in room sleeping. Patient states she is agreeable to discharge home and will have her pick her up when he gets off work at 1530. Patient has dx of PTSD and is being followed by [facility]. Patient requested SW call [facility] as she will be missing her appointments this week. MANDY called and was notified patient is on a 30-day alternative letter? Which was due to missed appointments. [facility] stated patient would need to come on a walk-in appointment basis on any Friday at 1550 before 12/26 or she would have to be reassessed. Once patient goes to one walk-in appointment [facility] will return patient to weekly scheduling. MANDY notified patient of this information and document details on sticky note which was placed in her discharge folder. Plan: Patient to discharge home today with supportive family and following up with [facility] for services.
[2017-12-02 12:50] VITALS: BP 115/65; PULSE 72; RESP 16; TEMP 36.9; O2SAT 99
--- NOTE | 2017-12-02 14:15 | PC.NURSE ---
day shift- pt states pain present in lower abd and also right shoulder. hot pack to shoulder and warm blanket to abd. percocet and flexeril to help control pain. geiger out this AM and pt able to urinate 450 ml without issue after removal. hourly rounding provided, call light within reach.
== END 2017-12-02 16:26 | disposition home or self-care (01) ==
LOC: OR 11:54 → AC 11:55
PROVIDERS: PCP Family Medicine; Visit Provider Specialist
PROC: 0UT94ZL Resection of Uterus, Supracervical, Percutaneous Endoscopic Approach (ICD-10-PCS; CPT 58542; principal; 2017-12-01 13:30)
DX: N80.0 Endometriosis of uterus (principal); F17.210 Nicotine dependence, cigarettes, uncomplicated
CPT/HCPCS: 58542; 36415; 85025; J0690; J1100; J1170; J1885; J2250; J2405; J2704; J3010; J7613

== ENCOUNTER 2017-12-05 20:58 | Emergency (ER) | payer OTHER, MEDICAID, SELFPAY ==
[2017-12-01 17:27] VITALS: BMI 20.5
[2017-12-05 21:03] VITALS: BP 115/74; PULSE 78; RESP 16; TEMP 37; O2SAT 100; BMI 21.7
--- NOTE | 2017-12-05 21:41 | DI.RAD.S_ITS ---
PROCEDURE: XR CHEST 1V INDICATIONS: chest pain, history of recent laparoscopic hysterectomy. TECHNIQUE: One view of the chest was acquired. COMPARISON: [facility], , CHEST 2 VIEW, 05/15/2017, 12:53. FINDINGS: Right subdiaphragmatic pneumoperitoneum is present. Surgical changes and devices: None. Lungs and pleura: No pleural effusions or pneumothorax. Lungs are clear. Mediastinum: Mediastinal contours appear normal. Heart size is normal. Bones and chest wall: No suspicious bony lesions. Overlying soft tissues appear unremarkable. IMPRESSION: 1. No acute cardiopulmonary process. 2. Pneumoperitoneum, compatible with recent surgery. 3. Findings discussed with Dr. Breen on 12.06.17 at 08:53. Dictated by: Lyndsey Ross M.D. on 12/06/2017 at 8:51 Approved by: Lyndsey Ross M.D. on 12/06/2017 at 8:54
--- NOTE | 2017-12-05 22:03 | ED.ABDPAIN ---
HPI - Abdominal Pain General Chief Complaint: Abdominal Pain Stated Complaint: HYSTERECTOMY PAIN/RIGHT SHOULDER PAIN HEAVY CHEST Time Seen by Provider: 12/05/17 21:40 Source: patient Mode of arrival: ambulatory Limitations: no limitations History of Present Illness HPI narrative: Patient is a 37-year-old female who had a laparoscopic hysterectomy performed on Friday of this week. She states that she was discharged on Friday. She states that since then and also prior to her discharge she has had abdominal discomfort and right-sided chest pain and right shoulder pain. She states that she was evaluated by both anesthesia and her operative surgeon prior to discharge and according to the patient's report they were thinking that the discomfort was secondary to the surgery and that her symptoms should improve over the next several days. She states that her symptoms have not improved. She also states she has not had a bowel movement since prior to the surgery. She is still passing small amounts of gas. No fevers. Related Data Home Medications Medication Instructions Recorded Confirmed cetirizine 10 mg PO QDAY #0 05/21/17 12/01/17 loratadine [Claritin Liqui-Gel] 10 mg PO QDAY #0 05/21/17 12/01/17 sertraline [Zoloft] 50 mg PO DAILY 11/19/17 11/19/17 gabapentin 300 mg capsule 300 mg PO BEDTIME 11/27/17 12/01/17 Spacer: Inhaler Spacer Device 1 ea INH SEE INSTRUCTIONS PRN 12/01/17 12/01/17 Previous Rx's Medication Instructions Recorded albuterol sulfate [Ventolin HFA] 2 puff INH Q4HP PRN #1 ea 05/15/17 cyclobenzaprine 10 mg PO TID PRN #12 tab 09/27/17 naproxen 500 mg PO QD-BID PRN #14 tab 09/27/17 oxycodone-acetaminophen 10 mg-325 2 tab PO Q4H PRN #40 tab 11/27/17 mg tablet Allergies Allergy/AdvReac Type Severity Reaction Status Date / Time levofloxacin [LEVOFLOXACIN] Allergy Intermediate nausea, Verified 11/19/17 12:28 vomiting. Review of Systems Constitutional Denies fever(s) and Denies headache(s) ENT Ears, Nose, Mouth, and Throat: Denies headache(s) Cardiovascular Reports chest pain, Denies edema, Denies leg edema, Denies palpitations and Denies dyspnea Respiratory Denies chest congestion, Denies cough and Denies dyspnea Gastrointestinal Gastrointestinal: Reports abdominal pain, Reports belching, Reports constipation, Denies excessive flatus, Denies nausea and Denies vomiting Genitourinary Denies dysuria Musculoskeletal Denies myalgias and Reports arthralgias (Right shoulder) Integumentary/Breasts Denies lesions and Denies rash Neurologic Denies behavioral changes and Denies headache(s) Psychiatric Denies behavioral changes Endocrine Denies palpitations Hematologic/Lymphatic Denies easy bleeding and Denies easy bruising [facility] Medical History Fatigue (Acute) Fibromyalgia (Acute) History of back pain (Acute) History of bronchitis (Acute) History of migraine headaches (Acute) History of pneumonia (Acute) Allergic rhinitis (Chronic Unknown) Anxiety (Chronic Unknown) Asthma (Chronic Unknown) Chronic back pain (Chronic Unknown) Depression (Chronic Unknown) Heavy menstrual period (Chronic Unknown) Migraines (Chronic Unknown) PTSD (post-traumatic stress disorder) (Chronic Unknown) Painful menstrual periods (Chronic Unknown) Recurrent sinusitis (Chronic Unknown) Rheumatoid arthritis (Chronic Unknown) Scoliosis (Chronic Unknown) Anemia (Resolved Unknown) Fibroids (Resolved 1997) Lupus (Inactive Unknown) Surgical History History of bilateral tubal ligation (Acute) Hx of sinus surgery (Acute 2003) Hx of bladder repair surgery (Resolved 2015) Hx of tonsillectomy (Resolved 1991) Hx of tubal ligation (Resolved 2004) Family History Brother Age: 46 Hypertension Father Heart disease Hypertension Grandfather Prostate cancer Heart disease Hypertension High cholesterol Grandmother Hypertension Mother Age: 67 Colon cancer Parkinson disease Grandmother Cancer Hypertension High cholesterol Social History household members: significant other and children Smoking Status: Current every day smoker alcohol intake: current Exam Initial Vital Signs Initial Vital Signs: Vital Signs Temperature 98.6 F 12/05/17 21:03 Pulse Rate 78 12/05/17 21:03 Respiratory Rate 16 12/05/17 21:03 Blood Pressure 115/74 12/05/17 21:03 Pulse Oximetry 100 12/05/17 21:03 Const General: cooperative, healthy appearing, comfortable, well developed, well groomed and No acute distress Orientation: alert, awake and oriented x3 HENMT Head: normal to inspection, normocephalic and atraumatic Resp Effort & Inspection: normal respiratory effort Auscultation: clear to auscultation bilaterally Cardio Rate: regular rate Rhythm: regular rhythm Pulses: radial pulses present GI Inspection: distended and incision (Consistent with her surgeries that look well) Palpation: No firm, No guarding and tender (Diffuse) Skin Lesions: no lesions Rashes: no rashes Neuro General: alert, awake and oriented x3 Cognition: normal cognition Speech: speech normal Extrem Other: No defined tenderness to the right shoulder just generalized tenderness with palpation and movement. Psych Appearance: grossly normal and well kempt Course Orders Ordered: ED Orders 12/05/17 21:41 XR chest 1V Stat EKG-12 Lead Stat 12/05/17 22:16 Complete Blood Count AUTO DIFF Stat Comprehensive Metabolic Panel Stat Lactate (Lactic Acid) Stat Lipase Stat Vital Signs - 8 hr 12/05/17 21:03 12/05/17 22:20 12/05/17 22:28 Temperature 98.6 F 99.0 F 99.0 F Pulse Rate 78 72 72 Respiratory Rate 16 16 16 Blood Pressure 115/74 115/74 Blood Pressure [Left Arm] 105/63 Pulse Oximetry 100 98 98 12/05/17 23:19 Temperature Pulse Rate 69 Respiratory Rate 16 Blood Pressure Blood Pressure [Left Arm] 114/58 L Pulse Oximetry 100 MDM - Abdominal Pain Lab Data Attestation: I reviewed the patient's lab results. Result diagrams: 12/05/17 22:16 12/05/17 22:16 Lab Results 12/05/17 12/05/17 12/05/17 Range/Units 22:16 22:16 22:16 WBC 7.1 (4.5-11.0) X10^3/uL RBC 3.56 L (4.0-5.2) X10^6/uL Hgb 10.8 L (12.0-16.0) g/dL Hct 31.3 L (36-46) % MCV 88.0 (80-100) fL MCH 30.2 (26-34) PG MCHC 34.3 (30-36) % RDW 13.7 (11.6-14.8) % Plt Count 294 (150-400) X10^3/uL Neut % (Auto) 38.2 L (50-75) % Lymph % (Auto) 44.5 H (25-40) % [place] % (Auto) 8.1 (3-14) % Eos % (Auto) 8.9 H (2-4) % Baso % (Auto) 0.3 (0-2) % Neut # (Auto) 2700 L (5709-0807) /uL Sodium 140 (137-145) mmol/L Potassium 3.8 (3.4-5.1) mmol/L Chloride 104 (98-107) mmol/L Carbon Dioxide 26 (22-32) mmol/L BUN 7 (7-17) mg/dL Creatinine 0.70 (0.52-1.04) mg/dL Estimated GFR > 60.0 (>60) mL/min BUN/Creatinine Ratio 10.0 (6-22) Glucose 108 H (70-100) mg/dL Lactate 1.2 (0.7-2.1) mmol/L Calcium 9.2 (8.4-10.2) mg/dL Total Bilirubin 0.4 (0.2-1.3) mg/dL AST 16 (14-36) IU/L ALT 13 (9-52) IU/L Alkaline Phosphatase 39 (38-126) U/L Total Protein 7.0 (6.3-8.2) g/dL Albumin 4.0 (3.5-5.0) g/dL Globulin 3.0 (1.7-4.1) g/dL Albumin/Globulin Ratio 1.3 (1.0-2.8) Lipase 214 (23-300) U/L Imaging Data Chest x-ray: Attestation: I personally reviewed and interpreted this imaging study as follows: My impression: Normal lungs Normal size heart Free air under the right diaphragm ECG Data Attestation: I personally reviewed and interpreted this ECG as follows: Prior ECG tracings: not available for review Interpretation: Sinus rhythm Ventricular rate is 71 Normal axis Normal QRS Normal QTC No ST T wave changes MDM Narrative Medical decision making narrative: Patient has had right-sided chest and right shoulder pain since prior to her discharge from the hospital earlier this week. No respiratory distress. Labs unremarkable. Chest x-ray does show free air under the right diaphragm however this could very well be secondary to the laparoscopic procedure that she had earlier this week. She does have a distended abdomen however it is soft and is non surgical. I suspect that her right shoulder pain is secondary to irritation of the right diaphragm and referred pain up the phrenic nerve. She is not in respiratory distress. Will hold on further workup for now. I have low suspicion for ACS. We did discuss pain control. We did discuss return precautions. Patient expressed understanding and agreement with plan. Discharge Plan Departure Patient Disposition: Home Clinical Impression: Abdominal pain, Constipation, Acute pain of right shoulder Discharge Date/Time: 12/05/17 23:50 Interventions: ED Discharge Assessment Last Done: 12/05/17 23:50 Instructions: Constipation, DI for Abdominal Pain-Adult Activity Restrictions/Additional Instructions: Recommend you take the pain medication that you were given by your operative surgeon as directed. Also recommend that you start taking a laxative such as MiraLax like we discussed. Call your scientific research manager doctor on Friday for a follow-up. Return to the emergency department for any new symptoms, worsening symptoms, worsening abdominal pain, fevers, vomiting, or any other concerning symptoms. Prescriptions: No Action albuterol sulfate [Ventolin HFA] 90 MCG/PUFF HFA aerosol inhaler 2 puff INH Q4HP PRNQty: 1 RF: 0 cetirizine 10 MG tablet 10 mg PO QDAY Qty: 0 RF: 0 loratadine [Claritin Liqui-Gel] 10 MG capsule 10 mg PO QDAY Qty: 0 RF: 0 gabapentin 300 mg capsule 300 mg PO BEDTIME RF: 0 oxycodone-acetaminophen 10-325 mg tablet 2 tab PO Q4H PRN (Reason: pain) Qty: 40 RF: 0 sertraline [Zoloft] 50 mg Tablet 50 mg PO DAILY RF: 0 Spacer: Inhaler Spacer Device 1 ea INH SEE INSTRUCTIONS PRN (Reason: unknown) RF: 0 cyclobenzaprine 10 mg tablet 10 mg PO TID PRN (Reason: muscle spasm) Qty: 12 RF: 0 naproxen 500 mg tablet 500 mg PO QD-BID PRN (Reason: pain) Qty: 14 RF: 0
[2017-12-05 22:20] VITALS: BP 115/74; PULSE 72; RESP 16; TEMP 37.2; O2SAT 98; BMI 21.7
[2017-12-05 22:28] VITALS: BP 105/63; PULSE 72; RESP 16; TEMP 37.2; O2SAT 98
[2017-12-05 22:33] LABS: Add Manual Diff / Slide Review NO; Basophils Percent Auto 0.3 % (0-2); Eosinophils Percent Auto 8.9 % (2-4); Hematocrit 31.3 % (36-46); Hemoglobin 10.8 g/dL (12.0-16.0); Lymphocytes Percent Auto 44.5 % (25-40); Mean Corpuscular HGB Conc 34.3 % (30-36); Mean Corpuscular Hemoglobin 30.2 PG (26-34); Monocytes Percent Auto 8.1 % (3-14); Neutrophils Absolute Auto 2700 /uL (3000-5900); Neutrophils Percent Auto 38.2 % (50-75); Platelet Count 294 X10^3/uL (150-400); Red Blood Cell Count 3.56 X10^6/uL (4.0-5.2); Red Cell Distribution Width 13.7 % (11.6-14.8); White Blood Cell Count 7.1 X10^3/uL (4.5-11.0)
[2017-12-05 22:38] LABS: Lactate (Lactic Acid) 1.2 mmol/L (0.7-2.1)
[2017-12-05 22:39] LABS: Alanine Aminotransferase 13 IU/L (9-52); Albumin Globulin Ratio 1.3 (1.0-2.8); Alkaline Phosphatase 39 U/L (38-126); Aspartate Aminotransferase 16 IU/L (14-36); Bilirubin Total 0.4 mg/dL (0.2-1.3); Blood Urea Nitrogen 7 mg/dL (7-17); Calcium 9.2 mg/dL (8.4-10.2); Carbon Dioxide 26 mmol/L (22-32); Chloride 104 mmol/L (98-107); Estimated Glomerular Filt Rate > 60.0 mL/min (>60); Glucose 108 mg/dL (70-100); HEMOLYSIS < 15 (0-50); Lipase 214 U/L (23-300); Potassium 3.8 mmol/L (3.4-5.1); Sodium 140 mmol/L (137-145)
--- NOTE | 2017-12-05 22:58 | PC.NURSE ---
Pt reports had a hysterectomy on 12/01 having referred pain to R shoulder for past 4 days pain meds not working. States no BM since 11/29 taking stool softener.
[2017-12-05 23:19] VITALS: BP 114/58; PULSE 69; RESP 16; O2SAT 100
== END 2017-12-05 23:50 | disposition home or self-care (01) ==
PROVIDERS: Emergency Provider Emergency Medicine; PCP Family Medicine
DX: K59.00 Constipation, unspecified (principal); M25.511 Pain in right shoulder; R10.9 Unspecified abdominal pain
CPT/HCPCS: 36591; 71045; 80053; 83605; 83690; 85025; 93005; 93010; 99282; 99285

== ENCOUNTER 2017-12-16 15:38 | Emergency (ER) | payer OTHER, MEDICAID, SELFPAY ==
[2017-12-01 17:27] VITALS: BMI 20.5
[2017-12-16 16:03] VITALS: BP 151/80; PULSE 117; RESP 18; TEMP 36.9; O2SAT 100
--- NOTE | 2017-12-16 16:41 | ED_ITS ---
HPI - Female Genitourinary <Sindi Mejia PA-C - Last Filed: 12/16/17 22:18> General Chief complaint: Vaginal Bleeding Stated complaint: Cramping/Bleeding after hysterectomy Time Seen by Provider: 12/16/17 16:33 Source: patient and old records reviewed Mode of arrival: ambulatory Limitations: no limitations History of Present Illness HPI Narrative: This 37-year-old female had laparoscopic hysterectomy, supracervical, on the of this month, done for DUB. She states that she had been having some spotting since, but woke up from a nap today with her underwear full of blood. She states this is significantly more bleeding than she has had previously. She states that since she changed her underwear she has had mostly spotting. She had a postop follow-up yesterday and states that she felt ?horrible?, with generalized weakness and fatigue after her appointment. She did walk a short distance to the appointment and felt okay prior to going. She states that she has had persistent gas pain since the surgery and this is not worse today. She had some arm pain which has resolved. She has only had 2 bowel movements and is taking laxative and stool softener. She is drinking lots of water. She states that she is always cold, no new fever at home that she is aware of. She denies any nausea or vomiting. She denies any urinary symptoms or known hematuria. She states that she does not have any personal or family history of bleeding disorder. States her father did have blood clots in the setting of lung cancer. She states that she is undergoing workup for lupus currently Related Data Home Medications Medication Instructions Recorded Confirmed cetirizine 10 mg PO QDAY #0 05/21/17 12/16/17 loratadine [Claritin Liqui-Gel] 10 mg PO QDAY #0 05/21/17 12/16/17 sertraline [Zoloft] 50 mg PO DAILY 11/19/17 12/16/17 gabapentin 300 mg capsule 300 mg PO BEDTIME 11/27/17 12/16/17 Previous Rx's Medication Instructions Recorded cyclobenzaprine 10 mg PO TID PRN #12 tab 09/27/17 naproxen 500 mg PO QD-BID PRN #14 tab 09/27/17 oxycodone-acetaminophen 10 mg-325 2 tab PO Q4H PRN #40 tab 11/27/17 mg tablet albuterol sulfate HFA 90 2 puff INHALATION Q4HP PRN #1 ea 12/12/17 mcg/actuation aerosol inhaler Allergies Allergy/AdvReac Type Severity Reaction Status Date / Time levofloxacin [LEVOFLOXACIN] Allergy Intermediate nausea, Verified 12/16/17 16:03 vomiting. Review of Systems <Sindi Mejia PA-C - Last Filed: 12/16/17 22:18> Review of Systems All systems reviewed & are unremarkable except as noted in HPI and below Exam <Sindi Mejia PA-C - Last Filed: 12/16/17 22:18> Narrative Exam Narrative: GENERAL APPEARANCE: Patient sitting comfortably, in no distress. HEENT: PERRL, EOMI, no scleral icterus, conjunctiva somewhat pale NECK: Supple LUNGS: Clear to auscultation bilaterally. HEART: Rate and rhythm regular, normal S1 and S2, no S3 or S4. ABDOMEN: Soft, mild left lower quadrant tenderness without guarding or rebound nondistended, bowel sounds present x 4 quadrants, no masses palpable, no hepatosplenomegaly. EXTREMITIES: No edema, no cyanosis DERMATOLOGIC: No jaundice or exanthem NEUROLOGIC: Alert and oriented with normal speech and coordination : Normal external genitalia, there is a small amount of dark blood from the cervical os. I do not see any dehiscence of the suture line at the cuff. No other drainage, erythema or inflammation noted. No CMT Initial Vital Signs Initial Vital Signs: Vital Signs Temperature 98.4 F 12/16/17 16:03 Pulse Rate 117 H 12/16/17 16:03 Respiratory Rate 18 12/16/17 16:03 Blood Pressure 151/80 H 12/16/17 16:03 Pulse Oximetry 100 12/16/17 16:03 <Elba Kaiser DO - Last Filed: 12/18/17 07:51> Initial Vital Signs Initial Vital Signs: Vital Signs Temperature 98.4 F 12/16/17 16:03 Pulse Rate 117 H 12/16/17 16:03 Respiratory Rate 18 12/16/17 16:03 Blood Pressure 151/80 H 12/16/17 16:03 Pulse Oximetry 100 12/16/17 16:03 Course <LUH Santamaria Last Filed: 12/16/17 22:18> Additional Information: I spoke with Dr. Robb, air support operations operator for aerospace products sales engineer, and reviewed patient's history, physical exam findings and lab work. She had minimal bleeding on my exam and stated this had not been persistent by the time she got here. She had been on her feet a bit more yesterday and today prior to the bleeding. Dr. Robb felt that further w/u such as imaging studies not indicated this evening, and that it is reasonable for patient to go home and rest and call clinic 1st thing in the morning to arrange follow-up. Patient is agreeable with this planned and also plan to return if any acutely worsening symptoms again. We were also able to procure a belly band for her, which Dr. Aquino had prescribed yesterday but she has been unable to obtain locally. She has had some ongoing gassiness and abdominal discomfort since her surgery but nothing acutely worse today. Orders Ordered: ED Orders 12/16/17 16:35 Urinalysis and Microscopic Stat Urine Culture Stat 12/16/17 16:48 Complete Blood Count AUTO DIFF Stat Comprehensive Metabolic Panel Stat Fibrinogen Stat Partial Thromboplastin Time Stat Prothrombin Time INR Stat Vital Signs - 8 hr 12/16/17 16:03 12/16/17 16:55 12/16/17 18:30 Temperature 98.4 F 98.4 F 99.2 F Pulse Rate 117 H 105 H 104 H Respiratory Rate 18 16 17 Blood Pressure 151/80 H Blood Pressure [Left Arm] 123/75 H 110/73 Pulse Oximetry 100 100 100 12/16/17 19:04 Temperature Pulse Rate 97 H Respiratory Rate Blood Pressure Blood Pressure [Left Arm] Pulse Oximetry <Elba Kaiser, DO - Last Filed: 12/18/17 07:51> Orders Ordered: ED Orders 12/16/17 16:35 Urinalysis and Microscopic Stat Urine Culture Stat 12/16/17 16:48 Complete Blood Count AUTO DIFF Stat Comprehensive Metabolic Panel Stat Fibrinogen Stat Partial Thromboplastin Time Stat Prothrombin Time INR Stat Vital Signs - 8 hr 12/16/17 16:03 12/16/17 16:55 12/16/17 18:30 Temperature 98.4 F 98.4 F 99.2 F Pulse Rate 117 H 105 H 104 H Respiratory Rate 18 16 17 Blood Pressure 151/80 H Blood Pressure [Left Arm] 123/75 H 110/73 Pulse Oximetry 100 100 100 12/16/17 19:04 Temperature Pulse Rate 97 H Respiratory Rate Blood Pressure Blood Pressure [Left Arm] Pulse Oximetry MDM - Female Genitourinary <Sindi Mejia PA-C - Last Filed: 12/16/17 22:18> Lab Data Attestation: I reviewed the patient's lab results. Result diagrams: 12/16/17 16:48 12/16/17 16:48 Lab Results 12/16/17 12/16/17 12/16/17 Range/Units 16:35 16:48 16:48 WBC 8.9 (4.5-11.0) X10^3/uL RBC 3.97 L (4.0-5.2) X10^6/uL Hgb 11.8 L (12.0-16.0) g/dL Hct 34.1 L (36-46) % MCV 86.0 (80-100) fL MCH 29.7 (26-34) PG MCHC 34.5 (30-36) % RDW 13.7 (11.6-14.8) % Plt Count 408 H (150-400) X10^3/uL Neut % (Auto) 73.2 (50-75) % Lymph % (Auto) 18.6 L (25-40) % [place] % (Auto) 6.6 (3-14) % Eos % (Auto) 1.3 L (2-4) % Baso % (Auto) 0.3 (0-2) % Neut # (Auto) 6500 H (6969-8749) /uL PT (10.1-12.7) SECONDS INR (0.9-1.3) APTT (26.4-36.2) SECONDS Fibrinogen 587 H (211-428) mg/dL Sodium (137-145) mmol/L Potassium (3.4-5.1) mmol/L Chloride (98-107) mmol/L Carbon Dioxide (22-32) mmol/L BUN (7-17) mg/dL Creatinine (0.52-1.04) mg/dL Estimated GFR (>60) mL/min BUN/Creatinine Ratio (6-22) Glucose (70-100) mg/dL Calcium (8.4-10.2) mg/dL Total Bilirubin (0.2-1.3) mg/dL AST (14-36) IU/L ALT (9-52) IU/L Alkaline Phosphatase (38-126) U/L Total Protein (6.3-8.2) g/dL Albumin (3.5-5.0) g/dL Globulin (1.7-4.1) g/dL Albumin/Globulin Ratio (1.0-2.8) Urine Color Yellow Urine Appearance Slightly cloudy Urine pH 7.0 (4.5-8.0) Ur Specific [place] <=1.005 (1.000-1.035) Urine Protein Negative (Negative) Urine Glucose (UA) Negative (Normal) g/dL Urine Ketones 1+ H (NEGATIVE) Urine Occult Blood 2+ H (Negative) Urine Nitrate Negative (Negative) Urine Bilirubin Negative (NEGATIVE) Urine Urobilinogen 0.2 (0.2) E.U./dL Ur Leukocyte Esterase 1+ H (NEGATIVE) Urine RBC 1-5/hpf (0-5/HPF) Urine WBC 5-10/hpf H (0-5/HPF) Ur Squamous Epith Cells 1-5 /hpf Urine Bacteria Occasional (0-1) (None) Ur Culture Indicated? Specimen cultured Micro UA Comment Not Reportable 12/16/17 12/16/17 Range/Units 16:48 16:48 WBC (4.5-11.0) X10^3/uL RBC (4.0-5.2) X10^6/uL Hgb (12.0-16.0) g/dL Hct (36-46) % MCV (80-100) fL MCH (26-34) PG MCHC (30-36) % RDW (11.6-14.8) % Plt Count (150-400) X10^3/uL Neut % (Auto) (50-75) % Lymph % (Auto) (25-40) % [place] % (Auto) (3-14) % Eos % (Auto) (2-4) % Baso % (Auto) (0-2) % Neut # (Auto) (8380-4660) /uL PT 13.3 H (10.1-12.7) SECONDS INR 1.2 (0.9-1.3) APTT 35 (26.4-36.2) SECONDS Fibrinogen (211-428) mg/dL Sodium 143 (137-145) mmol/L Potassium 3.1 L (3.4-5.1) mmol/L Chloride 104 (98-107) mmol/L Carbon Dioxide 25 (22-32) mmol/L BUN 8 (7-17) mg/dL Creatinine 0.70 (0.52-1.04) mg/dL Estimated GFR > 60.0 (>60) mL/min BUN/Creatinine Ratio 11.4 (6-22) Glucose 101 H (70-100) mg/dL Calcium 9.6 (8.4-10.2) mg/dL Total Bilirubin 0.9 (0.2-1.3) mg/dL AST 17 (14-36) IU/L ALT 19 (9-52) IU/L Alkaline Phosphatase 56 (38-126) U/L Total Protein 8.0 (6.3-8.2) g/dL Albumin 4.5 (3.5-5.0) g/dL Globulin 3.5 (1.7-4.1) g/dL Albumin/Globulin Ratio 1.3 (1.0-2.8) Urine Color Urine Appearance Urine pH (4.5-8.0) Ur Specific [place] (1.000-1.035) Urine Protein (Negative) Urine Glucose (UA) (Normal) g/dL Urine Ketones (NEGATIVE) Urine Occult Blood (Negative) Urine Nitrate (Negative) Urine Bilirubin (NEGATIVE) Urine Urobilinogen (0.2) E.U./dL Ur Leukocyte Esterase (NEGATIVE) Urine RBC (0-5/HPF) Urine WBC (0-5/HPF) Ur Squamous Epith Cells Urine Bacteria (None) Ur Culture Indicated? Micro UA Comment <Elba Kaiser, DO - Last Filed: 12/18/17 07:51> Lab Data Lab Results 12/16/17 12/16/17 12/16/17 Range/Units 16:35 16:48 16:48 WBC 8.9 (4.5-11.0) X10^3/uL RBC 3.97 L (4.0-5.2) X10^6/uL Hgb 11.8 L (12.0-16.0) g/dL Hct 34.1 L (36-46) % MCV 86.0 (80-100) fL MCH 29.7 (26-34) PG MCHC 34.5 (30-36) % RDW 13.7 (11.6-14.8) % Plt Count 408 H (150-400) X10^3/uL Neut % (Auto) 73.2 (50-75) % Lymph % (Auto) 18.6 L (25-40) % [place] % (Auto) 6.6 (3-14) % Eos % (Auto) 1.3 L (2-4) % Baso % (Auto) 0.3 (0-2) % Neut # (Auto) 6500 H (0521-1400) /uL PT (10.1-12.7) SECONDS INR (0.9-1.3) APTT (26.4-36.2) SECONDS Fibrinogen 587 H (211-428) mg/dL Sodium (137-145) mmol/L Potassium (3.4-5.1) mmol/L Chloride (98-107) mmol/L Carbon Dioxide (22-32) mmol/L BUN (7-17) mg/dL Creatinine (0.52-1.04) mg/dL Estimated GFR (>60) mL/min BUN/Creatinine Ratio (6-22) Glucose (70-100) mg/dL Calcium (8.4-10.2) mg/dL Total Bilirubin (0.2-1.3) mg/dL AST (14-36) IU/L ALT (9-52) IU/L Alkaline Phosphatase (38-126) U/L Total Protein (6.3-8.2) g/dL Albumin (3.5-5.0) g/dL Globulin (1.7-4.1) g/dL Albumin/Globulin Ratio (1.0-2.8) Urine Color Yellow Urine Appearance Slightly cloudy Urine pH 7.0 (4.5-8.0) Ur Specific [place] <=1.005 (1.000-1.035) Urine Protein Negative (Negative) Urine Glucose (UA) Negative (Normal) g/dL Urine Ketones 1+ H (NEGATIVE) Urine Occult Blood 2+ H (Negative) Urine Nitrate Negative (Negative) Urine Bilirubin Negative (NEGATIVE) Urine Urobilinogen 0.2 (0.2) E.U./dL Ur Leukocyte Esterase 1+ H (NEGATIVE) Urine RBC 1-5/hpf (0-5/HPF) Urine WBC 5-10/hpf H (0-5/HPF) Ur Squamous Epith Cells 1-5 /hpf Urine Bacteria Occasional (0-1) (None) Ur Culture Indicated? Specimen cultured Micro UA Comment Not Reportable 12/16/17 12/16/17 Range/Units 16:48 16:48 WBC (4.5-11.0) X10^3/uL RBC (4.0-5.2) X10^6/uL Hgb (12.0-16.0) g/dL Hct (36-46) % MCV (80-100) fL MCH (26-34) PG MCHC (30-36) % RDW (11.6-14.8) % Plt Count (150-400) X10^3/uL Neut % (Auto) (50-75) % Lymph % (Auto) (25-40) % [place] % (Auto) (3-14) % Eos % (Auto) (2-4) % Baso % (Auto) (0-2) % Neut # (Auto) (0149-4347) /uL PT 13.3 H (10.1-12.7) SECONDS INR 1.2 (0.9-1.3) APTT 35 (26.4-36.2) SECONDS Fibrinogen (211-428) mg/dL Sodium 143 (137-145) mmol/L Potassium 3.1 L (3.4-5.1) mmol/L Chloride 104 (98-107) mmol/L Carbon Dioxide 25 (22-32) mmol/L BUN 8 (7-17) mg/dL Creatinine 0.70 (0.52-1.04) mg/dL Estimated GFR > 60.0 (>60) mL/min BUN/Creatinine Ratio 11.4 (6-22) Glucose 101 H (70-100) mg/dL Calcium 9.6 (8.4-10.2) mg/dL Total Bilirubin 0.9 (0.2-1.3) mg/dL AST 17 (14-36) IU/L ALT 19 (9-52) IU/L Alkaline Phosphatase 56 (38-126) U/L Total Protein 8.0 (6.3-8.2) g/dL Albumin 4.5 (3.5-5.0) g/dL Globulin 3.5 (1.7-4.1) g/dL Albumin/Globulin Ratio 1.3 (1.0-2.8) Urine Color Urine Appearance Urine pH (4.5-8.0) Ur Specific [place] (1.000-1.035) Urine Protein (Negative) Urine Glucose (UA) (Normal) g/dL Urine Ketones (NEGATIVE) Urine Occult Blood (Negative) Urine Nitrate (Negative) Urine Bilirubin (NEGATIVE) Urine Urobilinogen (0.2) E.U./dL Ur Leukocyte Esterase (NEGATIVE) Urine RBC (0-5/HPF) Urine WBC (0-5/HPF) Ur Squamous Epith Cells Urine Bacteria (None) Ur Culture Indicated? Micro UA Comment Discharge Plan Departure Patient Disposition: Home Clinical Impression: Status post laparoscopic supracervical hysterectomy, Postoperative vaginal bleeding Discharge Date/Time: 12/16/17 19:04 Interventions: ED Discharge Assessment Last Done: 12/16/17 19:04 Instructions: Hysterectomy -- Laparoscopic Surgery, DI for Vaginal Hysterectomy Activity Restrictions/Additional Instructions: Since your bleeding has improved and you are feeling a bit better, the air support operations operator physician for gynecology has advised that you can return home tonight as long as you rest. Please stay off her feet, and she would like you to call the office 1st thing in the morning to arrange follow-up. You should return here right away if you have severe bleeding, or new symptoms such as worsening pain, fever, or drainage in the interim, or if you are just feeling worse suddenly Prescriptions: No Action cetirizine 10 MG tablet 10 mg PO QDAY Qty: 0 RF: 0 loratadine [Claritin Liqui-Gel] 10 MG capsule 10 mg PO QDAY Qty: 0 RF: 0 albuterol sulfate [Ventolin HFA] 90 mcg/actuation HFA aerosol inhaler 2 puff INHALATION Q4HP PRN (Reason: shortness of breath) Qty: 1 RF: 0 gabapentin 300 mg capsule 300 mg PO BEDTIME RF: 0 oxycodone-acetaminophen 10-325 mg tablet 2 tab PO Q4H PRN (Reason: pain) Qty: 40 RF: 0 sertraline [Zoloft] 50 mg Tablet 50 mg PO DAILY RF: 0 cyclobenzaprine 10 mg tablet 10 mg PO TID PRN (Reason: muscle spasm) Qty: 12 RF: 0 naproxen 500 mg tablet 500 mg PO QD-BID PRN (Reason: pain) Qty: 14 RF: 0 Referrals: Adamaris Aquino MD [Physician] - Selene Al DO [Primary Care Provider] - <Elba Kaiser DO - Last Filed: 12/18/17 07:51> Cosign ED Attending Megan Attestation: I was immediately available in the department for consultation. Documentation has been reviewed. I agree with assessment and plan.
--- NOTE | 2017-12-16 16:47 | PC.NURSE ---
Pt had a laprascopic hysterectomy 12.01.17. On Friday pt began spotting after walking. Pts surgeon told her that was normal and to rest . Pt has been doing that and then today while taking a nap she had a large amount of bright red blood when she awoke. Pt denies nausea or being dizzy but feels weak and tired.
[2017-12-16 16:50] LABS: Bilirubin Urine UA NEGATIVE (NEGATIVE); Color Urine UA YELLOW; Glucose Urine UA NEGATIVE (Normal); Ketones Urine UA 1+ (NEGATIVE); Leukocyte Esterase Urine UA 1+ (NEGATIVE); Nitrite Urine UA Negative (Negative); Occult Blood Urine UA 2+ (Negative); Protein Urine UA NEGATIVE (Negative); Specific Gravity Urine UA <=1.005 (1.000-1.035); Urobilinogen Urine UA 0.2 E.U./dL (0.2)
[2017-12-16 16:52] LABS: Appearance Urine UA Slightly Cloudy
[2017-12-16 16:55] VITALS: BP 123/75; PULSE 105; RESP 16; TEMP 36.9; O2SAT 100
[2017-12-16 17:03] LABS: Bacteria Urine Occasional (0-1); Culture Indicated Urine Specimen Cultured; RBC Urine 1-5/HPF (0-5/HPF); Squamous Epithelial Cell Urine 1-5 /HPF; WBC Urine 5-10/HPF (0-5/HPF)
[2017-12-16 17:07] LABS: Add Manual Diff / Slide Review NO; Basophils Percent Auto 0.3 % (0-2); Eosinophils Percent Auto 1.3 % (2-4); Hematocrit 34.1 % (36-46); Hemoglobin 11.8 g/dL (12.0-16.0); INR 1.2 (0.9-1.3); Lymphocytes Percent Auto 18.6 % (25-40); Mean Corpuscular HGB Conc 34.5 % (30-36); Mean Corpuscular Hemoglobin 29.7 PG (26-34); Monocytes Percent Auto 6.6 % (3-14); Neutrophils Absolute Auto 6500 /uL (3000-5900); Neutrophils Percent Auto 73.2 % (50-75); Platelet Count 408 X10^3/uL (150-400); Prothrombin Time 13.3 SECONDS (10.1-12.7); Red Blood Cell Count 3.97 X10^6/uL (4.0-5.2); Red Cell Distribution Width 13.7 % (11.6-14.8); White Blood Cell Count 8.9 X10^3/uL (4.5-11.0)
[2017-12-16 17:10] LABS: PTT Partial Thromboplastin Tim 35 SECONDS (26.4-36.2)
[2017-12-16 17:12] LABS: Alanine Aminotransferase 19 IU/L (9-52); Albumin 4.5 g/dL (3.5-5.0); Albumin Globulin Ratio 1.3 (1.0-2.8); Alkaline Phosphatase 56 U/L (38-126); Aspartate Aminotransferase 17 IU/L (14-36); BUN Creatinine Ratio 11.4 (6-22); Bilirubin Total 0.9 mg/dL (0.2-1.3); Blood Urea Nitrogen 8 mg/dL (7-17); Calcium 9.6 mg/dL (8.4-10.2); Carbon Dioxide 25 mmol/L (22-32); Chloride 104 mmol/L (98-107); Estimated Glomerular Filt Rate > 60.0 mL/min (>60); Globulin 3.5 g/dL (1.7-4.1); Glucose 101 mg/dL (70-100); HEMOLYSIS < 15 (0-50); Potassium 3.1 mmol/L (3.4-5.1); Sodium 143 mmol/L (137-145)
[2017-12-16 17:46] LABS: Fibrinogen 587 mg/dL (211-428)
[2017-12-16 18:30] VITALS: BP 110/73; PULSE 104; RESP 17; TEMP 37.3; O2SAT 100
--- NOTE | 2017-12-16 19:03 | PC.NURSE ---
placed abd binder for pt, showed sig other.
[2017-12-16 19:04] VITALS: PULSE 97
== END 2017-12-16 19:04 | disposition home or self-care (01) ==
PROVIDERS: Emergency Provider Internal Medicine; PCP Family Medicine
DX: N99.820 Postprocedural hemorrhage of a genitourinary system organ or structure following a genitourinary system procedure (principal); Z90.711 Acquired absence of uterus with remaining cervical stump
CPT/HCPCS: 36415; 80053; 81001; 85025; 85384; 85610; 85730; 87086; 99283

== ENCOUNTER → 2018-03-25 14:29 | Outpatient (CLI) | payer OTHER, MEDICAID, SELFPAY ==
[2017-12-01 17:27] VITALS: BMI 20.5
[2018-03-25 15:37] LABS: Add Manual Diff / Slide Review NO; Basophils Percent Auto 0.6 % (0-2); Eosinophils Percent Auto 5.5 % (2-4); Hematocrit 37.6 % (36-46); Hemoglobin 12.5 g/dL (12.0-16.0); Lymphocytes Percent Auto 44.6 % (25-40); Mean Corpuscular HGB Conc 33.2 % (30-36); Mean Corpuscular Hemoglobin 29.3 PG (26-34); Mean Corpuscular Volume 88.2 fL (80-100); Monocytes Percent Auto 7.1 % (3-14); Neutrophils Absolute Auto 3300 /uL (3000-5900); Neutrophils Percent Auto 42.2 % (50-75); Platelet Count 305 X10^3/uL (150-400); Red Blood Cell Count 4.26 X10^6/uL (4.0-5.2); Red Cell Distribution Width 14.8 % (11.6-14.8); White Blood Cell Count 7.8 X10^3/uL (4.5-11.0)
[2018-03-25 15:39] LABS: PTT Partial Thromboplastin Tim 34 SECONDS (26.4-36.2)
[2018-03-25 15:56] LABS: Free T3, Triiodothyronine Free 3.05 pg/mL (2.77-5.27); Free T4, Direct Thyroxine 0.84 ng/dL (0.78-2.19)
[2018-03-25 16:10] LABS: Thyroid Stimulating Hormone 1.33 uIU/mL (0.47-4.68)
== END ==
PROVIDERS: PCP Family Medicine; Visit Provider Family Medicine
DX: T14.8XXA Other injury of unspecified body region, initial encounter (principal); R94.6 Abnormal results of thyroid function studies
CPT/HCPCS: 36415; 84439; 84443; 84481; 85025; 85610; 85730